=== PATIENT | male | born 1965 | race Two or more races ===

== ENCOUNTER → 2020-09-29 | Outpatient (CLI) | payer OTHER | END | disposition home or self-care (01) | LOC: OFIC 805 15:15 | PROVIDERS: ATTEND Otolaryngology | DX: D10.1 Benign neoplasm of tongue (principal); R13.19 Other dysphagia; R22.1 Localized swelling, mass and lump, neck ==

== ENCOUNTER 2020-10-20 08:09 | Outpatient (CLI) | payer OTHER | END 2020-10-20 08:14 | disposition home or self-care (01) | LOC: SONOGRAMA 08:09 | PROVIDERS: ATTEND Pathology Anatomic Pathology & Clinical Pathology | DX: C10.8 Malignant neoplasm of overlapping sites of oropharynx (principal) ==